=== PATIENT | female | born 1935 | race Caucasian/White ===

== ENCOUNTER 2018-12-15 11:13 | Day surgery (SDC) | payer MEDICARE, SELFPAY ==
--- NOTE | 2018-12-11 10:25 | PM.PREOP ---
Pre-operative Note Interval Note History & Physical reviewed/Exam performed by Physician: Yes Changes to H&P: No
--- NOTE | 2018-12-11 11:26 | P.OP_ITS ---
Operative Date/Time/Diagnoses Date of procedure: 12/15/18 Time of procedure: 12:45 Procedure & Clinicians Procedure: Preoperative diagnoses: 1. Left nuclear sclerotic and cortical cataract. Postoperative diagnoses: 1. Cataract removed by phacoemulsification with placement of posterior chamber intraocular lens. Procedure: Phacoemulsification with posterior chamber intraocular lens implant Surgeon: Shruthi Shields MD Complications: None Specimen: None Implant: ZCBOO+20.0 Blood loss: None Anesthesia: Retrobulbar with monitored standby Description of procedure: Patient presents with a complaint of decreased vision due to cataract which is affecting activities of daily living. The patient wants surgery to improve vision. The patient was taken to the operating room and given IV sedation. A retrobulbar block consisting of 6 cc of 2% xylocaine without epinephrine mixed half and half with 0.5% Marcaine with 1 cc of hyaluronidase added is placed between the medial and lateral 1/3 of the inferior orbital rim. Lid akinesia is obtain with 1% xylocaine with epinephrine infiltrated along the lid margin. The eye is manually massaged for 30 sec, prepped using Betadine solution, and draped in the usual sterile fashion. Temporal approach was made, a 1 mm side-port incision was made 90? from the proposed clear corneal incision position. Phenylephrine 1.5% mixed with 1% xylocaine 0.2 cc was placed into the anterior chamber. Viscoat followed by Vivienne was then placed. A 2.6 mm clear incision with a 2.6 mm blade was placed. A 360 degree capsulorrhexis style capsulotomy was then performed with a cystitome needle on a Healon. Hydrodelineation and hydrodissection were performed. The phacoemulsification unit is introduced, and sculpting notice used to groove the central lens. It is then removed in chopping mode. Epi nucleus is removed with epinuclear mode and irrigation aspiration was used to remove the peripheral cortex. The posterior capsule is polished. The intraocular lens is selected, inspected, power confirmed, and placed in the posterior chamber. The pupil was constricted with Miostat.. The wound was stromally hydrated and tested for leaks, there was none and it was left sutureless. Vigamox 0.1 cc was placed into the anterior chamber. Kenalog 0.2 cc was placed in the superior subconjunctival space. A drop of antibiotic and was placed and the eye was patched and shielded. The patient was stable and returned to the recovery room in excellent condition. Dictated by: Shruthi Shields MD Copy to: [facility]
[2018-12-15 12:00] VITALS: BP 149/80; PULSE 63; RESP 15; TEMP 36.3; O2SAT 100; BMI 19.4
[2018-12-15] MEDS: PROPARACAINE 0.5% OPHTH SOL 2 DROPS EYE-OP (12:08)
[2018-12-15] MEDS: CATARACT EYE COMPOUND (10 DROPS/SYRINGE) 3 DROPS EYE-OP (12:10)
--- NOTE | 2018-12-15 13:18 | SUR.OPER ---
Supine on eye stretcher, head on extension cradle secured with tape. Arms tucked at sides with blanket. Pillow under knees.
[2018-12-15] MEDS: MOXIFLOXACIN OPHTH DROPS 3 ML BOTTLE 2 DROPS INJ (13:45)
[2018-12-15] MEDS: PHENYLEPHRINE/LIDOCAINE VIAL (OR) 0.2 ML EYE-OP (13:45)
[2018-12-15] MEDS: TRIAMCINOLONE 50 MG/5 ML VIAL INJ (13:46)
[2018-12-15] MEDS: CHONDROIDTIN/SOD HYALURONATE 1.05 ML SYRINGE INTRAOCULA (13:46)
[2018-12-15] MEDS: CARBACHOL 1.5 ML VIAL INJ (13:47)
[2018-12-15] MEDS: BALANCED SALT IRRIG SOLN NO.2 15 ML IRR (13:47)
[2018-12-15] MEDS: OFLOXACIN 0.3% OPHTH 5 ML 2 DROPS EYE-LEFT (13:48)
[2018-12-15] MEDS: BALANCED SALT IRRIG SOLN NO.2 500 ML, EPINEPHrine 1 MG IRR (13:49)
[2018-12-15] MEDS: ERYTHROMYCIN OPHTH 1 GM OINT 1 APPLIC EYE-LEFT (13:50)
[2018-12-15] MEDS: LIDOCAINE 1% W/EPI INJ 20 ML INJ (13:51)
[2018-12-15] MEDS: LIDOCAINE 2% 4 ML, BUPIVACAINE 0.5% (PF) 4 ML, HYALURONIDASE 150 UNIT INJ (13:52)
[2018-12-15 14:15] VITALS: BP 150/69; PULSE 63; RESP 16; TEMP 36.4; O2SAT 100
== END 2018-12-15 14:31 | disposition home or self-care (01) ==
LOC: OR 11:14
PROVIDERS: Family Provider Family Medicine; PCP Family Medicine; Visit Provider Ophthalmology
DX: H25.812 Combined forms of age-related cataract, left eye (principal)
CPT/HCPCS: J0171; J2704; J3301; J3470

== ENCOUNTER → 2018-12-17 13:59 | Outpatient (CLI) | payer MEDICARE, SELFPAY | PROVIDERS: PCP Family Medicine; Visit Provider Family Medicine | DX: Z13.820 Encounter for screening for osteoporosis (principal); M85.851 Other specified disorders of bone density and structure, right thigh; Z78.0 Asymptomatic menopausal state; Z87.891 Personal history of nicotine dependence | CPT/HCPCS: 77080 ==

== ENCOUNTER 2018-12-29 08:13 | Day surgery (SDC) | payer MEDICARE, SELFPAY ==
--- NOTE | 2018-12-28 18:13 | PM.PREOP ---
Pre-operative Note Interval Note History & Physical reviewed/Exam performed by Physician: Yes Changes to H&P: No
--- NOTE | 2018-12-28 18:16 | P.OP_ITS ---
Operative Date/Time/Diagnoses Date of procedure: 12/29/18 Time of procedure: 09:45 Procedure & Clinicians Procedure: Preoperative diagnoses: 1. Right nuclear sclerotic and cortical cataract. Postoperative diagnoses: 1. Cataract removed by phacoemulsification with placement of posterior chamber intraocular lens. Procedure: Phacoemulsification with posterior chamber intraocular lens implant Surgeon: Shruthi Shields MD Complications: None Specimen: None Implant: ZCBOO+20.5 Blood loss: None Anesthesia: Retrobulbar with monitored standby Description of procedure: Patient presents with a complaint of decreased vision due to cataract which is affecting activities of daily living. The patient wants surgery to improve vision. The patient was taken to the operating room and given IV sedation. A retrobulbar block consisting of 6 cc of 2% xylocaine without epinephrine mixed half and half with 0.5% Marcaine with 1 cc of hyaluronidase added is placed between the medial and lateral 1/3 of the inferior orbital rim. Lid akinesia is obtain with 1% xylocaine with epinephrine infiltrated along the lid margin. The eye is manually massaged for 30 sec, prepped using Betadine solution, and draped in the usual sterile fashion. Temporal approach was made, a 1 mm side-port incision was made 90? from the proposed clear corneal incision position. Phenylephrine 1.5% mixed with 1% xylocaine 0.2 cc was placed into the anterior chamber. Viscoat followed by Vivienne was then placed. A 2.6 mm clear incision with a 2.6 mm blade was placed. A 360 degree capsulorrhexis style capsulotomy was then performed with a cystitome needle on a Healon. Hydrodelineation and hydrodissection were performed. The phacoemulsification unit is introduced, and sculpting notice used to groove the central lens. It is then removed in chopping mode. Epi nucleus is removed with epinuclear mode and irrigation aspiration was used to remove the peripheral cortex. The posterior capsule is polished. The intraocular lens is selected, inspected, power confirmed, and placed in the posterior chamber. The pupil was constricted with Miostat.. The wound was stromally hydrated and tested for leaks, there was none and it was left sutureless. Vigamox 0.1 cc was placed into the anterior chamber. Kenalog 0.2 cc was placed in the superior subconjunctival space. A drop of antibiotic and was placed and the eye was patched and shielded. The patient was stable and returned to the recovery room in excellent condition. Dictated by: Shruthi Shields MD Copy to: [facility]
[2018-12-29] MEDS: PROPARACAINE 0.5% OPHTH SOL 2 DROPS EYE-OP (08:55)
[2018-12-29] MEDS: CATARACT EYE COMPOUND (10 DROPS/SYRINGE) 3 DROPS EYE-OP (09:00)
[2018-12-29 09:07] VITALS: BP 143/77; PULSE 69; RESP 16; TEMP 36.1; O2SAT 100
[2018-12-29 09:08] VITALS: BMI 19.5
--- NOTE | 2018-12-29 10:06 | PM.PREOP ---
Pre-operative Note Interval Note History & Physical reviewed/Exam performed by Physician: Yes Changes to H&P: No
--- NOTE | 2018-12-29 10:14 | SUR.OPER ---
Supine on eye stretcher, head on extension cradle secured with tape. Arms tucked at sides with blanket. Pillow under knees.
[2018-12-29] MEDS: MOXIFLOXACIN OPHTH DROPS 3 ML BOTTLE 2 DROPS INJ ×2 (10:25→10:26)
[2018-12-29] MEDS: TRIAMCINOLONE 50 MG/5 ML VIAL INJ (10:26)
[2018-12-29] MEDS: BALANCED SALT IRRIG SOLN NO.2 15 ML IRR (10:27)
[2018-12-29] MEDS: CHONDROIDTIN/SOD HYALURONATE 1.05 ML SYRINGE INTRAOCULA (10:27)
[2018-12-29] MEDS: HYALURONATE SODIUM 10 MG/ML SYRINGE INJ (10:27)
[2018-12-29] MEDS: CARBACHOL 1.5 ML VIAL INJ (10:28)
[2018-12-29] MEDS: OFLOXACIN 0.3% OPHTH 5 ML 2 DROPS EYE-RIGHT (10:28)
[2018-12-29] MEDS: BALANCED SALT IRRIG SOLN NO.2 500 ML, EPINEPHrine 1 MG IRR (10:29)
[2018-12-29] MEDS: ERYTHROMYCIN OPHTH 1 GM OINT 1 APPLIC EYE-RIGHT (10:31)
[2018-12-29] MEDS: LIDOCAINE 1% W/EPI INJ 20 ML INJ (11:00)
[2018-12-29] MEDS: LIDOCAINE 2% 4 ML, BUPIVACAINE 0.5% (PF) 4 ML, HYALURONIDASE 150 UNIT INJ (11:00)
[2018-12-29 11:01] VITALS: BP 152/79; PULSE 69; RESP 15; TEMP 36.4; O2SAT 98
[2018-12-29 11:18] VITALS: BP 133/68; PULSE 65; RESP 15; TEMP 36.6; O2SAT 100
== END 2018-12-29 11:21 | disposition home or self-care (01) ==
LOC: OR 08:14
PROVIDERS: PCP Family Medicine; Visit Provider Ophthalmology
DX: H25.811 Combined forms of age-related cataract, right eye (principal)
CPT/HCPCS: J0171; J2704; J3301; J3470

== ENCOUNTER → 2019-01-07 14:49 | Outpatient (CLI) | payer MEDICARE, SELFPAY ==
--- NOTE | 2019-01-07 | DI.MG.S_ITS ---
BILATERAL DIGITAL SCREENING MAMMOGRAM 3D/2D WITH CAD: 01/07/2019 CLINICAL: Routine screening. Family history of breast cancer. Comparison is made to exams dated: 01/08/2018 mammogram, 12/22/2016 mammogram, and 08/06/2015 mammogram - [facility]. The tissue of both breasts is extremely dense, which lowers the sensitivity of mammography. Current study was also evaluated with a Computer Aided Detection (CAD) system. There are benign post operative findings in the left breast. There also are benign calcifications in both breasts. No significant masses, calcifications, or other findings are seen in either breast. There has been no significant interval change. IMPRESSION: There is no mammographic evidence of malignancy. A 1 year screening mammogram is recommended. This exam was interpreted at Station ID: [id number]. NOTE: For mammograms, a report in lay terms will be sent to the patient. Approximately 15% of breast malignancies will not be visualized mammographically. In the management of a palpable breast mass, a negative mammogram must not discourage biopsy of a clinically suspicious lesion. Electronically Signed By: Harrison mcduffie/danielle:01/07/2019 17:12:21 letter sent: Normal Exam ACR BI-RADS Category 2: Benign Finding(s) 3342F
== END ==
PROVIDERS: PCP Family Medicine; Visit Provider Family Medicine
DX: Z12.31 Encounter for screening mammogram for malignant neoplasm of breast (principal); Z80.3 Family history of malignant neoplasm of breast
CPT/HCPCS: 77063; 77067

== ENCOUNTER → 2019-02-04 15:55 | Outpatient (CLI) | payer MEDICARE, SELFPAY ==
--- NOTE | 2019-02-04 | DI.ECHO.S_ITS ---
[facility]---------+ [facility] +---------+ : : [address] : : : : [id number] : : : : Phone: [phone]+ Echocardiogram Report + + :Name: DAMIEN FARMRE Study Date: 02/04/2019 Height: 68 in : :[facility] Weight: 131 lb : : Gender: Female BSA: 1.7 m2 : :: 1935 Age: 83 yrs BP: 100/58 mmHg: :Reason For Study: HYPOTENSION : : Performed By: Deann Chavez : :Referring: JANEL MCINTOSH : + + Interpretation Summary The left ventricle is normal in size, wall thickness, and systolic function without any focal wall motion abnormalities. The right ventricle is normal in size and function. Both atria are normal in size. Pulmonary artery pressures cannot be estimated because of the lack of a measurable TR jet velocity but the IVC suggests a CVP of around 3 mmHg. There is no prior echocardiogram noted for this patient. Procedure: A two-dimensional transthoracic echocardiogram with color flow and Doppler was performed. The study quality was technically good. There is no prior echocardiogram noted for this patient. The patient was in normal sinus rhythm during the exam. Left Ventricle: The left ventricle is normal in size, wall thickness, and systolic function without any focal wall motion abnormalities. The ejection fraction is estimated to be 60-65%. Diastolic parameters suggest a relaxation abnormality of the left ventricle, consistent with probable normal filling pressures. Right Ventricle: The right ventricle is normal in size and function. Atria: Both atria are normal in size. There is no Doppler evidence for an interatrial shunt. Mitral Valve: The mitral valve is normal in structure and function. There is trace mitral regurgitation. Aortic Valve: The aortic valve is normal in structure and function. There is no aortic valve stenosis. There is trace aortic regurgitation. Tricuspid Valve: The tricuspid valve is normal in structure and function. There is a trace or physiologic amount of tricuspid regurgitation. Pulmonary artery pressures cannot be estimated because of the lack of a measurable TR jet velocity but the IVC suggests a CVP of around 3 mmHg. Pulmonic Valve: The pulmonic valve is normal in structure and function. There is a trace or physiologic amount of pulmonic regurgitation. Great Vessels: The aortic root is normal size. The ascending aorta is normal in size. The aortic arch is normal in size. The pulmonary artery is normal size. The IVC is of normal diameter and collapses greater than 50% with a sniff. This suggests a low right atrial pressure of 3 mm Hg. Pericardium/ Pleura There is no pericardial effusion. There is no pleural effusion. MMode/2D Measurements & Calculations LVIDd: 4.3 cm LVOT diam: 2.1 cm LVIDs: 2.9 cm Ao root diam: 2.7 cm FS: 31.6 % asc Aorta Diam: 2.9 cm EPSS: 0.30 cm IVSd: 0.80 cm LVPWd: 0.70 cm LV garcia. diameter/BSA (cm/m^2): 2.5 LV sys. diameter/BSA (cm/m^2): 1.7 LA A2 area: 11.9 cm2 RA long axis: 4.6 cm LA A4 area: 14.5 cm2 RA area: 13.0 cm2 LA length (vol): 4.9 cm RA vol: 31.2 ml LA vol: 29.8 ml RA : 18.3 ml/m2 LA vol index: 17.5 ml/m2 IVC diam: 2.1 cm RVD1 (basal): 3.1 cm TAPSE: 1.8 cm Doppler Measurements & Calculations Ao V2 max: 105.6 cm/sec LVOT Max Micheal: 84.2 cm/sec Ao V2 mean: 80.5 cm/sec LV V1 max P.8 mmHg Ao max P.5 mmHg LV V1 VTI: 18.3 cm Ao mean P.8 mmHg DENISE(I,D): 2.9 cm2 Ao V2 VTI: 22.9 cm DENISE(V,D): 2.9 cm2 sev ratio: 0.80 DENISE indexed to BSA (cm^2/m^2): 1.7 MV E max micheal: 55.7 cm/sec SV(LVOT): 65.4 ml MV A max micheal: 70.5 cm/sec MV E/A: 0.79 Med Peak E' Micheal: 3.9 cm/sec E/E' med: 14.3 Lat Peak E' Micheal: 6.2 cm/sec E/E' lat: 9.0 E/e' average: 11.6 MV dec time: 0.30 sec Electronically signed by: Jacob Mendoza M.D. on Reading Physician:02/04/2019 11:03 PM
== END ==
PROVIDERS: PCP Family Medicine; Visit Provider Family Medicine
DX: I95.9 Hypotension, unspecified (principal)
CPT/HCPCS: 93306

== ENCOUNTER → 2020-03-28 15:58 | Outpatient (CLI) | payer MEDICARE, SELFPAY ==
--- NOTE | 2020-03-28 16:42 | DI.RAD.S_ITS ---
PROCEDURE: XR KNEE LT 3V INDICATIONS: LEFT KNEE PAIN S/P FALL TECHNIQUE: 3 views of the knee were acquired. COMPARISON: None. FINDINGS: Bones: No fractures or dislocations. No suspicious bony lesions. Mild tricompartmental articular osteophyte formation. Soft tissues: Moderate knee joint effusion. No suspicious soft tissue calcifications. IMPRESSION: 1. Knee joint effusion. 2. No acute fracture. No osseous lesion. If symptoms and/or clinical suspicion for pathology persist, further assessment with repeat, or advanced imaging (e.g., CT, MRI, or bone scan) may be helpful for further assessment. Dictated by: Silviano Castro M.D. on 03/28/2020 at 17:07 Approved by: Silviano Castro M.D. on 03/28/2020 at 17:08
== END ==
PROVIDERS: PCP Family Medicine; Referring Provider Family Medicine; Visit Provider Family Medicine
DX: M25.562 Pain in left knee (principal); M25.462 Effusion, left knee
CPT/HCPCS: 73562

== ENCOUNTER → 2020-04-13 13:08 | Outpatient (CLI) | payer MEDICARE, SELFPAY ==
--- NOTE | 2020-04-13 | DI.MRI.S_ITS ---
PROCEDURE: MR KNEE LT WO CON INDICATIONS: Unspecified internal derangement of left knee TECHNIQUE: Noncontrast sagittal PD fast spin echo and T2 fast spin echo with fat saturation, sagittal 3-D FLASH with fat saturation; coronal T1 spin echo and PD fast spin echo with fat saturation, and axial PD fast spin echo with fat saturation through the knee. COMPARISON: None. FINDINGS: Image quality: Excellent. Menisci: Complex tear involving posterior horn of medial meniscus is seen extending to both superior and inferior articulating surfaces. There is no evidence of focal lateral meniscal tear. The meniscal root ligaments appear intact. Cruciate ligaments: Degenerative changes and suggestion of low-grade intrasubstance partial-thickness tear involving anterior cruciate ligament is seen. No full thickness ACL rupture. PCL is intact.. Medial structures: The medial collateral ligament appears intact. The posterior oblique ligament, semimembranosus tendon insertions, oblique popliteal ligament, and meniscocapsular junction appear intact. Visualized portions of the pes anserinus tendons appear normal. No abnormal bursal fluid. Lateral structures: The lateral collateral ligament, long and short heads of the biceps femoris tendon appear intact. The popliteus tendon appears normal; the popliteofibular ligament appears intact. The posterosuperior and anteroinferior popliteomeniscal fascicles appear intact. The arcuate and fabellofibular ligaments appear intact, on either side of the lateral inferior geniculate artery. Iliotibial band appears normal. Anterior structures: The quadriceps and patellar tendons appear intact. Patellar alignment is normal. No femoral trochlear dysplasia or ventral trochlear prominence. No edema in the infrapatellar fat pad. Bones and cartilage: Extensive edema involving mid to inferior portion of patella is seen. Subtle linear hypointense signal within the inferior portion of patella is noted concerning for subtle nondisplaced patella fracture. Mild tricompartmental osteoarthritis is seen more prominent in the medial femoral tibial compartment. Low-grade medial and lateral femoral tibial compartment chondromalacia is also seen. Joint space: There is small amount of joint fluid. Small popliteal cyst is seen. Normal appearing synovial plicae are incidentally noted. IMPRESSION: 1. Finding is concerning for contusion versus subtle incomplete fracture of inferior portion of patella with extensive marrow edema. No other area of abnormal marrow signal. 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 Small amount of joint fluid and small popliteal cyst. 2. Complex tear involving posterior horn of medial meniscus extending to both superior and inferior articulating surfaces. No focal lateral meniscal tear. 3. Myxoid degenerative changes and low-grade intrasubstance partial-thickness tear involving anterior cruciate ligament. No full-thickness ACL rupture. PCL is intact. Dictated by: Mika Lazaro M.D. on 04/13/2020 at 14:10 Approved by: Mika Lazaro M.D. on 04/13/2020 at 14:27
== END ==
PROVIDERS: PCP Family Medicine; Referring Provider Orthopaedic Surgery; Visit Provider Orthopaedic Surgery
DX: S83.232A Complex tear of medial meniscus, current injury, left knee, initial encounter (principal); S83.512A Sprain of anterior cruciate ligament of left knee, initial encounter; M17.12 Unilateral primary osteoarthritis, left knee; M94.262 Chondromalacia, left knee; R60.0 Localized edema
CPT/HCPCS: 73721

== ENCOUNTER → 2021-01-11 15:41 | Outpatient (CLI) | payer MEDICARE, SELFPAY ==
--- NOTE | 2021-01-11 15:42 | DI.MG.S_ITS ---
BILATERAL DIGITAL SCREENING MAMMOGRAM 3D/2D WITH CAD: 01/11/2021 CLINICAL: Routine screening. Family history of breast cancer. Comparison is made to exams dated: 01/07/2019 mammogram, 01/08/2018 mammogram, and 12/22/2016 mammogram - [facility]. The tissue of both breasts is extremely dense, which lowers the sensitivity of mammography. Current study was also evaluated with a Computer Aided Detection (CAD) system. There are benign calcifications in both breasts. There also are benign post operative findings in the left breast. No significant masses, calcifications, or other findings are seen in either breast. There has been no significant interval change. IMPRESSION: BENIGN There is no mammographic evidence of malignancy. A 1 year screening mammogram is recommended. This exam was interpreted at Station ID: [id number]. NOTE: For mammograms, a report in lay terms will be sent to the patient. Approximately 15% of breast malignancies will not be visualized mammographically. In the management of a palpable breast mass, a negative mammogram must not discourage biopsy of a clinically suspicious lesion. Electronically Signed By: Antelmo arias/danielle:01/11/2021 16:30:06 letter sent: Normal Exam ACR BI-RADS Category 2: Benign Finding(s) 3342F
== END ==
PROVIDERS: PCP Family Medicine; Referring Provider Family Medicine; Visit Provider Family Medicine
DX: Z12.31 Encounter for screening mammogram for malignant neoplasm of breast (principal)
CPT/HCPCS: 77063; 77067

== ENCOUNTER → 2022-03-25 10:49 | Outpatient (CLI) | payer MEDICARE, SELFPAY ==
--- NOTE | 2022-03-25 | DI.MG.S_ITS ---
BILATERAL DIGITAL SCREENING MAMMOGRAM 3D/2D WITH CAD: 03/25/2022 CLINICAL: Routine screening. Family history of breast cancer. Comparison is made to exams dated: 01/11/2021 mammogram, 01/07/2019 mammogram, 01/08/2018 mammogram, and 12/22/2016 mammogram - [facility]. The tissue of both breasts is extremely dense, which lowers the sensitivity of mammography. Current study was also evaluated with a Computer Aided Detection (CAD) system. There are benign calcifications in both breasts. There also are benign vascular calcifications in both breasts. Additionally, there are benign post operative findings in the left breast. No significant masses, calcifications, or other findings are seen in either breast. There has been no significant interval change. IMPRESSION: BENIGN There is no mammographic evidence of malignancy. A 1 year screening mammogram is recommended. This exam was interpreted at Station ID: [id number]. NOTE: For mammograms, a report in lay terms will be sent to the patient. Approximately 15% of breast malignancies will not be visualized mammographically. In the management of a palpable breast mass, a negative mammogram must not discourage biopsy of a clinically suspicious lesion. Electronically Signed By: Keron springer/danielle:03/25/2022 12:29:20 letter sent: Normal Exam ACR BI-RADS Category 2: Benign Finding(s) 3342F
== END ==
PROVIDERS: PCP Family Medicine; Referring Provider Family Medicine; Visit Provider Family Medicine
DX: Z12.31 Encounter for screening mammogram for malignant neoplasm of breast (principal); Z80.3 Family history of malignant neoplasm of breast
CPT/HCPCS: 77063; 77067

== ENCOUNTER → 2022-06-05 14:09 | Outpatient (CLI) | payer MEDICARE, SELFPAY | PROVIDERS: PCP Family Medicine; Referring Provider Family Medicine; Visit Provider Family Medicine | DX: M85.89 Other specified disorders of bone density and structure, multiple sites (principal) | CPT/HCPCS: 77080 ==

== ENCOUNTER → 2023-08-03 15:53 | Outpatient (CLI) | payer MEDICARE, SELFPAY ==
--- NOTE | 2023-08-03 | DI.ECHO.S_ITS ---
[place] [facility]---------+ [facility] +---------+ : : [address] : : : : [id number] : : : : Phone: [phone]---------+ Echocardiogram Report + + :Name: DAMIEN FARMER Study Date: 08/03/2023 Height: 68 in : :[facility]: Weight: 130 lb : : Gender: Female BSA: 1.7 m2 : :: 1935 Age: 88 yrs BP: 159/84 mmHg: :Reason For Study: Palpitations : :Ordering Physician: ARNALDO, : :JANEL Performed By: Jasmine Chase : :Referring: JANEL MCINTOSH : + + Interpretation Summary Normal left ventricle size with ejection fraction 55-60%. Mild mitral regurgitation. Comparison is made with the echocardiogram of 02/04/2019, no significant change. Procedure: A two-dimensional transthoracic echocardiogram with color flow and Doppler was performed. The study quality was technically adequate. Comparison is made with the echocardiogram of 02/04/2019. The patient was in normal sinus rhythm during the exam. Left Ventricle: The left ventricle is normal in size. There is normal left ventricular wall thickness. The ejection fraction is estimated to be 55-60%. There are no focal wall motion abnormalities. Right Ventricle: The right ventricle is normal in size and function. Atria: The left atrial size is normal. Right atrial size is normal. There is no Doppler evidence for an interatrial shunt. Mitral Valve: The mitral valve leaflets appear borderline thickened, but open well. There is no mitral valve stenosis. There is mild mitral regurgitation. Aortic Valve: The aortic valve is trileaflet. The aortic valve opens well. There is no aortic valve stenosis. There is trace aortic regurgitation. Tricuspid Valve: The tricuspid valve is normal. There is no tricuspid stenosis. There is trace tricuspid regurgitation. The right ventricular systolic pressure is estimated to be at least 26 mmHg based on an estimated right atrial pressure of 8 mm Hg. Pulmonic Valve: The pulmonic valve leaflets are thin and pliable; valve motion is normal. There is no pulmonic valvular stenosis. There is trace pulmonic regurgitation. Great Vessels: The aortic root is normal size. The ascending aorta is normal in size. The pulmonary artery is normal size. The IVC is dilated (diameter is greater than 2.1 cm) yet it collapses greater than 50% with a sniff. This suggests a right atrial pressure of 8 mm Hg. Pericardium/ Pleura There is no pericardial effusion. There is no pleural effusion. MMode/2D Measurements & Calculations LVIDd: 4.2 cm LVOT diam: 1.9 cm LVIDs: 2.9 cm Ao root diam: 2.9 cm FS: 31.0 % asc Aorta Diam: 3.2 cm EPSS: 0.50 cm IVSd: 1.0 cm LVPWd: 1.0 cm LV garcia. diameter/BSA (cm/m^2): 2.5 LV sys. diameter/BSA (cm/m^2): 1.7 LA A2 area: 16.5 cm2 RA long axis: 3.9 cm LA A4 area: 11.9 cm2 RA area: 8.0 cm2 LA length (vol): 5.5 cm RA vol: 13.9 ml LA vol: 30.5 ml RA : 8.2 ml/m2 LA vol index: 17.9 ml/m2 IVC diam: 2.6 cm RVD1 (basal): 3.2 cm LVLs ap4: 5.2 cm LVLd ap2: 6.2 cm TAPSE_phl: 2.2 cm LVLs ap2: 5.5 cm Doppler Measurements & Calculations Ao V2 max: 116.0 cm/sec LVOT Max Micheal: 100.5 cm/sec Ao V2 mean: 81.6 cm/sec LV V1 max P.0 mmHg Ao max P.0 mmHg LV V1 VTI: 20.5 cm Ao mean P.0 mmHg DENISE(I,D): 2.1 cm2 Ao V2 VTI: 28.1 cm DENISE(V,D): 2.5 cm2 sev ratio: 0.73 DENISE indexed to BSA (cm^2/m^2): 1.2 MV E max mihceal: 73.0 cm/sec TR max micheal: 214.0 cm/sec MV A max micheal: 80.2 cm/sec TR max P.3 mmHg MV E/A: 0.91 PA V2 max: 77.1 cm/sec Med Peak E' Micheal: 6.2 cm/sec PA V2 mean: 54.8 cm/sec E/E' med: 11.8 PA mean P.5 mmHg Lat Peak E' Micheal: 7.8 cm/sec PA pr(Accel): 39.8 mmHg E/E' lat: 9.4 E/e' average: 10.6 MV dec time: 0.21 sec SV(LVOT): 58.1 ml AV VR_phl: 0.87 DENISE(VTI)/BSA_phl: 1.2 Electronically signed by: Martínez Crain on Reading Physician:08/03/2023 09:17 PM
== END ==
PROVIDERS: Family Provider Family Medicine; PCP Family Medicine; Referring Provider Family Medicine; Visit Provider Family Medicine
DX: I34.0 Nonrheumatic mitral (valve) insufficiency (principal); I49.9 Cardiac arrhythmia, unspecified; R00.2 Palpitations
CPT/HCPCS: 93306

== ENCOUNTER → 2023-09-23 13:21 | Outpatient (CLI) | payer MEDICARE, SELFPAY | PROVIDERS: Family Provider Family Medicine; PCP Family Medicine; Referring Provider Family Medicine; Visit Provider Family Medicine | DX: G62.89 Other specified polyneuropathies (principal); M48.062 Spinal stenosis, lumbar region with neurogenic claudication | CPT/HCPCS: 95886; 95910 ==

== ENCOUNTER 2023-10-28 09:07 | Emergency (ER) | payer MEDICARE, SELFPAY ==
[2023-10-28 09:14] VITALS: BP 190/86; PULSE 75; RESP 14; TEMP 36.2; O2SAT 97; BMI 21.2
--- NOTE | 2023-10-28 09:28 | DI.CT.S_ITS ---
PROCEDURE: CT HEAD/BRAIN WO CON INDICATIONS: GLF/INJURY/PAIN TECHNIQUE: Noncontrast 4.5 mm thick angled axial sections acquired from the foramen magnum to the vertex, with coronal and sagittal reformats. For radiation dose reduction, the following was used: automated exposure control, adjustment of mA and/or kV according to patient size. COMPARISON: None. FINDINGS: Image quality: Diagnostic. CSF spaces: Basal cisterns are patent. No extra-axial fluid collections. The ventricles are symmetric in size and shape. Brain: No intracranial bleeds or masses. There is cerebral volume loss for age, with resultant ventricular and sulcal prominence. There are periventricular and deep white matter chronic small vessel ischemic changes. There is intracranial internal carotid artery atherosclerosis. Skull and face: Calvarium and visualized facial bones appear intact, without suspicious lesions. Large subgaleal hematoma, right anterolateral supraorbital region. Sinuses: Visualized sinuses and mastoids are clear. IMPRESSION: Subgaleal hematoma. No acute intracranial pathology. Dictated by: Marbin Burk M.D. on 10/28/2023 at 9:59 Approved by: Marbni Burk M.D. on 10/28/2023 at 10:00
--- NOTE | 2023-10-28 09:28 | DI.RAD.S_ITS ---
PROCEDURE: XR SHOULDER RT MIN 2V INDICATIONS: GLF/INJURY/PAIN TECHNIQUE: 3 views of the shoulder were acquired. COMPARISON: [facility], , SHOULDER MINIMUM 2 VIEW LEFT, 04/20/2007, 10:09. FINDINGS: Bones: No fractures or dislocations. No suspicious bony lesions. Visualized ribs appear intact. Moderate to severe acromioclavicular moderate glenohumeral degenerative narrowing. Soft tissues: No suspicious soft tissue calcifications. IMPRESSION: Arthritic changes at the shoulder. No visualized acute fracture or dislocation. However, if clinical concern and/or pain persist, short interval imaging followup in 7-10 days is recommended, as occult injury cannot be definitively excluded. Dictated by: Irene Wu M.D. on 10/28/2023 at 10:01 Approved by: Irene Wu M.D. on 10/28/2023 at 10:02
--- NOTE | 2023-10-28 09:38 | DI.CT.S_ITS ---
PROCEDURE: CT CERVICAL SPINE WO CON INDICATIONS: GLF/INJURY/PAIN TECHNIQUE: Noncontrast 3 mm thick sections acquired from the skull base to the T4 level. Sagittal and coronal reformats were then constructed. For radiation dose reduction, the following was used: automated exposure control, adjustment of mA and/or kV according to patient size. COMPARISON: None. FINDINGS: Image quality: Excellent. Bones: No fractures or dislocations. Visualized superior ribs are intact. Cervical spondylosis with disc height loss and uncovertebral joint osteophytosis at C3-C4 through C5-C6 with bilateral foraminal narrowing at these levels. There is a degree of canal stenosis at C5-C6. Soft tissues: Prevertebral soft tissues are normal in thickness. No paravertebral hematomas. No apical pneumothoraces. Mild apical emphysematous change. 7 mm apical pulmonary nodule on the left, image 65/2. IMPRESSION: 1. No acute cervical fracture or dislocation. 2. Cervical spondylosis. 3. Mild biapical emphysematous change. 4. 7 mm left apical pulmonary nodule. Comment: Consider nonemergent lung screen CT. Dictated by: Marbin Burk M.D. on 10/28/2023 at 10:00 Approved by: Marbin Burk M.D. on 10/28/2023 at 10:03
--- NOTE | 2023-10-28 10:46 | ED.HEATRA ---
HPI - Head Injury General Chief complaint: Head Injury Stated complaint: hit in head and right shoulder from dog feels sick Time Seen by Provider: 10/28/23 09:12 Source: patient Mode of arrival: Ambulatory History of Present Illness HPI Narrative: 88-year-old female presents for evaluation of head injury that occurred just prior to arrival. Patient was walking her dog when another large dog ran up and began to wrestling with her dog. While trying to separate the 2 animals the other dog jumped and head-butted her in the right face. Denies loss of consciousness, denies use of blood thinners. Also having R shoulder pain. Large hematoma on R forehead near eyebrow Related Data Home Medications Medication Instructions Recorded Confirmed CYANOCOBALAMIN (VITAMIN B-12) 1,000 mcg PO Q DAY ##0 10/23/11 12/29/18 (Vitamin B-12) FLAXSEED (FLAXSEED OIL) 1 cap PO Q DAY ##0 10/23/11 12/29/18 Fish Oil (Fish Oil 500 MG Softgel) 500 mg PO Q DAY ##0 10/23/11 12/29/18 Previous Rx's Medication Instructions Recorded ondansetron 4 mg disintegrating 4 mg PO Q8H PRN nausea and 10/28/23 tablet vomiting #30 tabs Allergies Allergy/AdvReac Type Severity Reaction Status Date / Time Sulfa (Sulfonamide Allergy Severe severe flu Verified 10/28/23 09:14 Antibiotics) symptoms, [SULFA (SULFONAMIDE orbital ANTIBIOTICS)] jaundice Review of Systems Review of Systems Narrative: Negative except as noted above Patient History Social History household members: none Smoking Status: Unknown if ever smoked Smoking Status: Unknown if ever smoked alcohol intake frequency: 0-2 drinks per day Substance Use Type: does not use Exam Initial Vital Signs Initial Vital Signs: Vital Signs Temperature 97.1 F L 10/28/23 09:14 Pulse Rate 75 10/28/23 09:14 Respiratory Rate 14 10/28/23 09:14 Blood Pressure 190/86 H 10/28/23 09:14 Pulse Oximetry 97 10/28/23 09:14 Oxygen Delivery Method Room Air 10/28/23 09:14 Const: Awake, alert, no acute distress, nontoxic appearing Eyes: PERRL, EOMI, conjunctiva normal Cardiac: regular rate, regular rhythm RESP: unlabored, clear bilaterally, no wheezing GI: Atraumatic, soft, nontender, nondistended, no rebound, no guarding MSK: Atraumatic, full range of motion, pulses equal Skin: Warm, Dry, hematoma R forehead Neuro: AO x3, CN II-XII grossly intact, moves all extremities Psych: affect normal, mood normal, not suicidal, not homicidal Course Orders Ordered: Discontinued Medications Acetaminophen (Acetaminophen 325 Mg Tablet) 975 mg PO NOW ONE Stop: 10/28/23 10:39 Last Admin: 10/28/23 10:51 Dose: 975 mg Documented By: CTS Diphtheria/Tetanus/Acell Pertussis (Tet,Diph,Pertuss(Acell),Vac/Pf 0.5 Ml Syringe) 0.5 ml IM .ONCE ONE Stop: 10/28/23 10:49 Last Admin: 10/28/23 10:53 Dose: 0.5 ml Documented By: CTS Vital Signs Vital signs: Vital Signs - 8 hr 10/28/23 09:14 Temperature 97.1 F L Pulse Rate 75 Respiratory Rate 14 Blood Pressure 190/86 H Pulse Oximetry 97 Oxygen Delivery Method Room Air MDM - Head Injury Differential Diagnosis Differential diagnosis: Likely concussion without loss of consciousness, closed head injury and postconcussion syndrome MDM Narrative Medical decision making narrative: Head injury, headbutted by dog. CT negative for intracranial findings. XR normal. patient advised of imaging results, supportive measures counseled for home. Zofran sent to pharmacy of choice Discharge Plan Departure Patient Disposition: Home Clinical Impression: Hematoma Closed head injury Qualifiers: Encounter type: initial encounter Qualified Code(s): S09.90XA - Unspecified injury of head, initial encounter Instructions: DI for Closed Head Injury Activity Restrictions/Additional Instructions: Your CT imaging showed that you have a large bruise, but nothing broken and no bleeding in the brain. Incidentally a pulmonary nodule was found, I recommend following up with your primary care physician to see if any additional testing is needed. Your shoulder x-ray today was normal. Take Tylenol for pain, ice will help with swelling. Prescriptions: New ondansetron 4 mg tablet,disintegrating 4 mg PO Q8H PRN (Reason: nausea and vomiting) Qty: 30 0RF No Action CYANOCOBALAMIN (VITAMIN B-12) (Vitamin B-12) 1,000 mcg PO Q DAY Qty: 0 FLAXSEED (FLAXSEED OIL) 1 cap PO Q DAY Qty: 0 Fish Oil (Fish Oil 500 MG Softgel) 500 mg PO Q DAY Qty: 0 Referrals: Sabine Alvarado MD [Primary Care Provider] - Stand Alone Forms: Patient Portal/API
[2023-10-28] MEDS: ACETAMINOPHEN 325 MG TABLET 975 MG PO (10:51)
[2023-10-28] MEDS: TET,DIPH,PERTUSS(ACELL),VAC/PF 0.5 ML SYRINGE IM (10:53)
[2023-10-28 10:57] VITALS: BP 184/78; PULSE 77; RESP 16; O2SAT 99
== END 2023-10-28 10:58 | disposition home or self-care (01) ==
PROVIDERS: Emergency Provider Emergency Medicine; Family Provider Family Medicine; PCP Family Medicine
DX: S09.90XA Unspecified injury of head, initial encounter (principal); S00.83XA Contusion of other part of head, initial encounter; X58.XXXA Exposure to other specified factors, initial encounter; Z23 Encounter for immunization
CPT/HCPCS: 70450; 72125; 73030; 90471; 99283; 99284; 90715

== ENCOUNTER 2023-11-01 11:40 | Emergency (ER) | payer MEDICARE, SELFPAY ==
[2023-11-01 12:11] VITALS: BP 179/80; PULSE 70; RESP 16; TEMP 36.6; O2SAT 97; BMI 20.5
[2023-11-01 13:23] VITALS: BP 194/87; PULSE 76; O2SAT 96
--- NOTE | 2023-11-01 13:47 | ED_ITS ---
HPI - Head Injury General Chief complaint: Head Injury Stated complaint: fall t-4, not feeling better Time Seen by Provider: 11/01/23 13:38 Source: patient and family Mode of arrival: Ambulatory Limitations: no limitations History of Present Illness HPI Narrative: Patient is an 88-year-old female. Not on anticoagulation. Four days ago fell and hit the right side of her head. Seen here in the emergency department. Had CT scans performed. No intracranial acute pathology. Has seen her primary doctor. Since falling she states that the bruise that she had on the side of her head has improved but she does have bruising around both of her eyes. She denies any vision changes. Has had episodes of ringing in her ears, lightheadedness, dizziness and facial pressure. No new extremity injuries. Related Data Home Medications Medication Instructions Recorded Confirmed CYANOCOBALAMIN (VITAMIN B-12) 1,000 mcg PO Q DAY ##0 10/23/11 12/29/18 (Vitamin B-12) FLAXSEED (FLAXSEED OIL) 1 cap PO Q DAY ##0 10/23/11 12/29/18 Fish Oil (Fish Oil 500 MG Softgel) 500 mg PO Q DAY ##0 10/23/11 12/29/18 Previous Rx's Medication Instructions Recorded ondansetron 4 mg disintegrating 4 mg PO Q8H PRN nausea and 10/28/23 tablet vomiting #30 tabs promethazine 25 mg tablet 25 mg PO Q6H PRN nausea and 11/01/23 vomiting #10 tabs Allergies Allergy/AdvReac Type Severity Reaction Status Date / Time Sulfa (Sulfonamide Allergy Severe severe flu Verified 11/01/23 12:16 Antibiotics) symptoms, [SULFA (SULFONAMIDE orbital ANTIBIOTICS)] jaundice Review of Systems Constitutional Constitutional: Reports system reviewed and no additional complaints, except as documented Eyes Eyes: Reports system reviewed and no additional complaints, except as documented ENT Ears, Nose, Mouth, and Throat: Reports system reviewed and no additional complaints, except as documented Musculoskeletal Musculoskeletal: Reports system reviewed and no additional complaints, except as documented Integumentary/Breasts Skin/Breast: Reports system reviewed and no additional complaints, except as documented Neurologic Neurologic: Reports system reviewed and no additional complaints, except as documented Hematologic/Lymphatic On Anticoagulants: No Patient History Social History household members: none Smoking Status: Never smoker Smoking Status: Never smoker alcohol intake frequency: 0-2 drinks per day Substance Use Type: does not use Exam Initial Vital Signs Initial Vital Signs: Vital Signs Temperature 97.9 F 11/01/23 12:11 Pulse Rate 70 11/01/23 12:11 Respiratory Rate 16 11/01/23 12:11 Blood Pressure 179/80 H 11/01/23 12:11 Pulse Oximetry 97 11/01/23 12:11 Oxygen Delivery Method Room Air 11/01/23 12:11 Const General: cooperative and comfortable HENMT Ears: TM's normal bilaterally HENMT Other: Ecchymosis right side of face and under both eyes Eyes Pupils: PERRL Other: Ecchymosis around eyes Resp Effort & Inspection: normal respiratory effort Cardio Rate: regular rate Skin Other: Ecchymosis around both eyes Neuro General: patient alert and moves all extremities Extrem General: capillary refill normal Scores GCS [place] coma scale eye opening: Spontaneous Janel coma scale verbal response: Orientated Janel coma scale motor response: Obey commands Janel coma scale total score: 15 Course Vital Signs Vital signs: Vital Signs - 8 hr 11/01/23 12:11 11/01/23 13:23 11/01/23 14:21 Temperature 97.9 F Pulse Rate 70 76 72 Respiratory Rate 16 16 Blood Pressure 179/80 H 194/87 H 175/80 H Pulse Oximetry 97 96 100 Oxygen Delivery Method Room Air Room Air MDM - Head Injury MDM Narrative Medical decision making narrative: Patient did have a head CT when she was seen here in the emergency department after the injury. This is unremarkable. Cervical spine is unremarkable. Presentation today is consistent with a concussion/postconcussive syndrome. No indication for repeat head CT today. We did discuss that the symptoms she presents with today are consistent with a concussion. Discussed use of Tylenol and ibuprofen. Zofran that she has at home is not necessarily working for her nausea so we will try Phenergan. Advised the patient contact her primary doctor for follow-up. She expressed understanding and agreement. Discharge Plan Departure Patient Disposition: Home Clinical Impression: Post-concussion syndrome Instructions: DI for Concussion Activity Restrictions/Additional Instructions: It is important that you continue all of your medications as directed. You can take the Tylenol like we discussed. Use the nausea medication as needed. Avoid activities that make his symptoms worse. Contact your primary doctor for follow-up. Return to the emergency department for new symptoms. Prescriptions: New promethazine 25 mg tablet 25 mg PO Q6H PRN (Reason: nausea and vomiting) Qty: 10 0RF No Action CYANOCOBALAMIN (VITAMIN B-12) (Vitamin B-12) 1,000 mcg PO Q DAY Qty: 0 FLAXSEED (FLAXSEED OIL) 1 cap PO Q DAY Qty: 0 Fish Oil (Fish Oil 500 MG Softgel) 500 mg PO Q DAY Qty: 0 ondansetron 4 mg tablet,disintegrating 4 mg PO Q8H PRN (Reason: nausea and vomiting) Qty: 30 0RF Referrals: Sabine Alvarado MD [Primary Care Provider] - Stand Alone Forms: Patient Portal/API
[2023-11-01 14:21] VITALS: BP 175/80; PULSE 72; RESP 16; O2SAT 100
== END 2023-11-01 14:22 | disposition home or self-care (01) ==
PROVIDERS: Emergency Provider Emergency Medicine; Family Provider Family Medicine; PCP Family Medicine
DX: F07.81 Postconcussional syndrome (principal)
CPT/HCPCS: 99281; 99283

== ENCOUNTER → 2023-11-03 15:40 | Outpatient (CLI) | payer MEDICARE, SELFPAY ==
--- NOTE | 2023-11-03 | DI.CT.S_ITS ---
PROCEDURE: CT CHEST WO CON INDICATIONS: PULMONARY NODULE TECHNIQUE: Noncontrast 5 mm thick sections acquired from the pulmonary apices to the posterior costophrenic angles. 1 mm lung window, 5 mm thick coronal and sagittal and 7 mm axial MIP reformats were then acquired. For radiation dose reduction, the following was used: automated exposure control, adjustment of mA and/or kV according to patient size. COMPARISON: [facility], CT, CT CERVICAL SPINE WO CON, 10/28/2023, 9:35. FINDINGS: Image quality: Diagnostic. Lower Neck: No enlarged lymph nodes. Thyroid: No thyroid nodules which require sonographic follow up, per consensus guidelines. Axillae: No enlarged lymph nodes. Chest Wall: Unremarkable. Bones: Unremarkable. Lungs and Pleura: Stable 7 mm left upper lobe nodule series 3, image 83. Bilateral patchy and confluent areas of apical thickening are present. Multiple bilateral pulmonary nodules are identified with the more prominent as follows: 3 mm right upper lobe nodule series 3, image 178. 4 mm right upper lobe nodule series 3, image 232. Nonspecific nodular thickening along the medial aspect of the right major fissure measuring approximately 9 mm series 3, image 255. Right lower lobe nodule measuring 6 mm series 3, image 272. There is an adjacent partially calcified nodule measuring 3 mm on series 3, image 275. 1 cm right lower lobe nodule series 3, image 289. 4 mm left lower lobe series 3, image 275. Heart: Heart size is normal. No pericardial effusion. Thoracic Vessels: The aorta and pulmonary arteries demonstrate normal size. Mediastinum and Kathie: No enlarged lymph nodes. Esophagus: No wall thickening. No hiatal hernia. Upper Abdomen: Left renal cyst as well as nonobstructing right renal calculus. Otherwise, visualized upper abdomen solid organs and bowel loops appear normal. IMPRESSION: Multiple bilateral pulmonary nodules the largest measuring 1 cm. No priors are available for comparison and there overall nonspecific. Recommend interval follow-up as below. Fleischner Society criteria for SOLID lung nodule followup. Nodule size (mm)Low-risk patientHigh-risk patient<6 (single or multiple)No routine followup.Optional CT at 12 months. 6-8 (single or multiple)CT at 6-12 months, then optional CT at 18-24 mo.CT at 6-12 months, then CT at 18-24 months. >8 (single)CT, PET-CT, or biopsy at 3 months. Same as for low-risk pts. >8 (multiple)CT at 3-6 months, then optional CT at 18-24 mo.CT at 3-6 months, then CT at 18-24 months. Recommendations do not apply to lung cancer screening, patients with immunosuppression, or patients with known primary cancer. Dictated by: Irene Wu M.D. on 11/03/2023 at 17:37 Approved by: Irene Wu M.D. on 11/03/2023 at 17:42
--- NOTE | 2023-11-03 | DI.CT.S_ITS ---
PROCEDURE: CT HEAD/BRAIN WO CON INDICATIONS: HEMATOMA TECHNIQUE: Noncontrast 4.5 mm thick angled axial sections acquired from the foramen magnum to the vertex, with coronal and sagittal reformats. For radiation dose reduction, the following was used: automated exposure control, adjustment of mA and/or kV according to patient size. COMPARISON: [facility], CT, CT HEAD/BRAIN WO CON, 10/28/2023, 9:35. FINDINGS: Image quality: Diagnostic. CSF spaces: Basal cisterns are patent. No extra-axial fluid collections. The ventricles are symmetric in size and shape. Brain: No intracranial bleeds or masses. There is cerebral volume loss for age, with resultant ventricular and sulcal prominence. There are periventricular and deep white matter chronic small vessel ischemic changes. There is intracranial internal carotid artery atherosclerosis. Skull and face: There is a right lower all forehead soft tissue hematoma seen, as on series 3, image 12. No associated calvarial fracture can be seen. Calvarium and visualized facial bones appear intact, without suspicious lesions. Sinuses: Visualized sinuses and mastoids are clear. IMPRESSION: Right lateral forehead scalp hematoma seen, which has partially regressed since the prior examination. There is no associated calvarial fracture. No acute intracranial hemorrhage is seen. No acute intracranial process is seen. Dictated by: Dylan Aden M.D. on 11/03/2023 at 15:44 Approved by: Dylan Aden M.D. on 11/03/2023 at 15:45
--- NOTE | 2023-11-03 | DI.MRI.S_ITS ---
PROCEDURE: MR SHOULDER RT WO CON INDICATIONS: PAIN RIGHT SHOULDER TECHNIQUE: Noncontrast oblique coronal T2 fast spin echo with fat saturation, oblique sagittal T1 spin echo and T2 fast spin echo with fat saturation, axial T1 spin echo and T2 fast spin echo with fat saturation through the shoulder. COMPARISON: None. FINDINGS: Image quality: Excellent. Rotator cuff: Low-grade articular and bursal surface partial thickness tear involving distal supraspinatus at its insertion on the humeral head is seen extending to musculotendinous junction. Distal infraspinatus tendinosis and low-grade articular surface partial-thickness tear at its insertion on the humeral head is noted. Distal subscapularis tendinosis is seen. No full-thickness rotator cuff tendon rupture. Sagittal images demonstrate no significant rotator cuff muscle atrophy. Bones and bursae: Marrow edema involving distal clavicle is seen without discrete fracture line. [id number] acromioclavicular joint osteoarthritic changes are seen with joint space narrowing, subchondral sclerosis and downward osteophyte formation depressing the musculotendinous junction of supraspinatus. Moderate to severe glenohumeral joint osteoarthritic changes also seen. The acromion demonstrates conventional anatomy, without an os acromiale. There is small amount of subacromial subdeltoid bursal fluid, no gross loose bodies. Capsule and soft tissues: Fraying of posterior inferior labrum at 6 to 7 o'clock position is seen concerning for subtle posterior inferior labral tear. The long head of the biceps tendon demonstrates normal location and morphology. The rotator interval appears normal, without fibrosis. The coracohumeral ligament is normal in thickness. IMPRESSION: 1. Suggestion of bony contusion involving distal clavicle with marrow edema and surrounding soft tissue edema. No definite fracture is seen. 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 Small to moderate joint effusion and subacromial subdeltoid bursal fluid, no gross loose bodies. 2. Low-grade articular and bursal surface partial thickness tear involving distal supraspinatus extending to musculotendinous junction. Low-grade articular surface partial-thickness tear involving distal infraspinatus. Distal subscapularis tendinosis. No full-thickness rotator cuff tendon rupture. No significant muscle atrophy. 3. Finding is suggestive of posterior inferior labral tear at 6 to 7 o'clock position. Dictated by: Mika Lazrao M.D. on 11/04/2023 at 9:18 Approved by: Mika Lazaro M.D. on 11/04/2023 at 9:35
== END ==
LOC: CT 15:41
PROVIDERS: Family Provider Family Medicine; PCP Family Medicine; Referring Provider Family Medicine; Visit Provider Family Medicine
DX: S00.03XA Contusion of scalp, initial encounter (principal); R40.20 Unspecified coma; R91.8 Other nonspecific abnormal finding of lung field; S46.011A Strain of muscle(s) and tendon(s) of the rotator cuff of right shoulder, initial encounter; M19.011 Primary osteoarthritis, right shoulder; M25.511 Pain in right shoulder; M25.411 Effusion, right shoulder; N28.1 Cyst of kidney, acquired; N20.0 Calculus of kidney; W19.XXXA Unspecified fall, initial encounter
CPT/HCPCS: 70450; 71250; 73221

== ENCOUNTER 2024-02-16 20:27 | Emergency (ER) | payer MEDICARE, SELFPAY ==
[2024-02-16] VITALS (8 sets, daily range): BP systolic 123–159; BP diastolic 60–92; PULSE 77–110; RESP 16–43; TEMP 36.6; O2SAT 96–99; BMI 20.5
--- NOTE | 2024-02-16 20:35 | DI.RAD.S_ITS ---
PROCEDURE: XR CHEST 1V INDICATIONS: chest pain TECHNIQUE: One view of the chest was acquired. COMPARISON: [facility], CT, CT CHEST WO CON, 11/03/2023, 15:51. [facility], CR, CHEST 1 VIEW, 06/19/2007, 10:44. FINDINGS: Surgical changes and devices: None. Lungs and pleura: Lungs are clear. No pleural effusions or pneumothorax. Mediastinum: Mediastinal contours appear normal. Heart size is normal. Bones and chest wall: No suspicious bony lesions. Prior left clavicle fracture. Overlying soft tissues appear unremarkable. Suspect artifact at the left lung base as the lucency projects outside the expected abdominal cavity. IMPRESSION: No acute cardiopulmonary abnormality is seen. Dictated by: Keron Moya M.D. on 02/16/2024 at 23:01 Approved by: Keron Moya M.D. on 02/16/2024 at 23:02
[2024-02-16] MEDS: ASPIRIN 81 MG CHEW TAB 324 MG PO (20:49)
[2024-02-16 20:53] LABS: Add Manual Diff / Slide Review NO; Basophils Absolute Auto 100 /uL (0-100); Eosinophils Absolute Auto 100 /uL (0-450); Eosinophils Percent Auto 1.3 % (2-4); Hematocrit 39.9 % (36-46); Hemoglobin 13.2 g/dL (12.0-16.0); Lymphocytes Absolute Auto 2100 /uL (1100-4500); Lymphocytes Percent Auto 35.1 % (25-40); Mean Corpuscular HGB Conc 33.1 % (30-36); Mean Corpuscular Hemoglobin 30.8 PG (26-34); Mean Corpuscular Volume 92.9 fL (80-100); Monocytes Absolute Auto 600 /uL (0-900); Monocytes Percent Auto 9.4 % (3-14); Neutrophils Absolute Auto 3200 /uL (1500-7000); Neutrophils Percent Auto 53.2 % (50-75); Platelet Count 195 X10^3/uL (150-400); Red Cell Distribution Width 14.4 % (11.6-14.8); White Blood Cell Count 6.1 X10^3/uL (4.5-11.0)
[2024-02-16 20:54] LABS: INR 0.9 (0.9-1.3)
[2024-02-16 20:57] LABS: PTT Partial Thromboplastin Tim 33 SECONDS (25.1-36.5)
[2024-02-16 21:00] LABS: Alanine Aminotransferase 20 IU/L (<35); Albumin 4.9 g/dL (3.5-5.0); Albumin Globulin Ratio 1.5 (1.0-2.8); Alkaline Phosphatase 95 U/L (38-126); Aspartate Aminotransferase 27 IU/L (14-36); BUN Creatinine Ratio 28.4 (6-22); Bilirubin Total 0.7 mg/dL (0.2-1.3); Blood Urea Nitrogen 23 mg/dL (7-17); Calcium 9.5 mg/dL (8.4-10.2); Carbon Dioxide 27 mmol/L (22-32); Chloride 107 mmol/L (98-107); Creatine Kinase 165 U/L (30-135); Estimated Glomerular Filt Rate > 60 mL/min (>60); Globulin 3.3 g/dL (1.7-4.1); Glucose 93 mg/dL (80-110); HEMOLYSIS < 15 (0-50); Lipase 90 U/L (23-300); Magnesium 2.3 mg/dL (1.6-2.3); Sodium 141 mmol/L (137-145); Total Protein 8.2 g/dL (6.3-8.2)
[2024-02-16 21:11] LABS: Troponin I < 0.012 ng/mL (0.01-0.034)
--- NOTE | 2024-02-16 22:49 | ED_ITS ---
HPI - Arrhythmia/Palpitations General Chief Complaint: Arrhythmia/Palpitations Stated Complaint: rapid heartrate, feels extra beats Time Seen by Provider: 02/16/24 22:48 Source: patient Mode of arrival: Ambulatory History of Present Illness HPI narrative: 88-year-old woman no significant medical history presents complaining of palpitations that have been intermittent for the last 4 days. She is concerned that they have been more persistent today. He has has been a problem previously, 2 months ago she had a Zio patch monitor that did not show any pathologic rhythms. She had an echocardiogram back in July that was unremarkable. She states that Dr. Alvarado, her primary care physician has done blood work and she is fairly sure that her thyroid levels have been checked and are unremarkable. She comes in today because she has been having this rapid heart rate over much of the day. When it is going fast she feels sinus pressure. There was no dyspnea, orthopnea, diaphoresis. She does not have any chest pain. There has been no recent nausea vomiting or diarrhea. On arrival in the emergency department with complaints of the palpitation she has been having all day her EKG shows a sinus tach with PACs at a rate of 103 Related Data Home Medications Medication Instructions Recorded Confirmed CYANOCOBALAMIN (VITAMIN B-12) 1,000 mcg PO Q DAY ##0 10/23/11 12/29/18 (Vitamin B-12) FLAXSEED (FLAXSEED OIL) 1 cap PO Q DAY ##0 10/23/11 12/29/18 Fish Oil (Fish Oil 500 MG Softgel) 500 mg PO Q DAY ##0 10/23/11 12/29/18 Previous Rx's Medication Instructions Recorded ondansetron 4 mg disintegrating 4 mg PO Q8H PRN nausea and 10/28/23 tablet vomiting #30 tabs promethazine 25 mg tablet 25 mg PO Q6H PRN nausea and 11/01/23 vomiting #10 tabs metoprolol tartrate 25 mg tablet 12.5 mg (1/2 x 25 mg) PO BID PRN 02/16/24 palpitations #20 tabs Allergies Allergy/AdvReac Type Severity Reaction Status Date / Time Sulfa (Sulfonamide Allergy Severe severe flu Verified 11/01/23 12:16 Antibiotics) symptoms, [SULFA (SULFONAMIDE orbital ANTIBIOTICS)] jaundice Review of Systems Review of Systems Narrative: Pertinent positive and negative findings as per HPI Patient History Social History household members: none Smoking Status: Never smoker Smoking Status: Never smoker alcohol intake frequency: 0-2 drinks per day Substance Use Type: does not use Exam Initial Vital Signs Initial Vital Signs: Vital Signs Pulse Rate 110 H 02/16/24 20:32 Blood Pressure 157/72 H 02/16/24 20:32 Pulse Oximetry 96 02/16/24 20:32 General: Healthy appearing, in no acute distress. Able to give a complete and coherent history. Well-nourished well-developed HEENT: Moist mucous membranes, normal sclera with reactive pupils, Neck: No JVD, supple Respiratory: Lungs are clear to auscultation, no wheezing no rales no rhonchi. Full and symmetrical air movement Cardiac: Regular rate and rhythm no murmurs no bruits Abdomen: Soft, nontender, good bowel tones, no flank pain Skin: Warm and dry, no rashes Neurologic: Grossly neurologically intact with no obvious asymmetries or abnormalities, no fine motor tremor Extremities: No trauma, well perfused, no lower extremity edema Psych: Cooperative, appropriate insight and affect Course Orders Ordered: ED Orders 02/16/24 20:35 XR chest 1V Stat EKG-12 Lead Stat 02/16/24 20:40 Complete Blood Count AUTO DIFF Stat Comprehensive Metabolic Panel Stat Lipase Stat Magnesium Stat PTT Partial Thromboplastin Ron Stat Prothrombin Time INR Stat Troponin & CK Cardiac Panel Stat Discontinued Medications Aspirin (Aspirin 81 Mg Chew Tab) 324 mg PO NOW ONE Stop: 02/16/24 20:36 Last Admin: 02/16/24 20:49 Dose: 324 mg Documented By: STAR Vital Signs Vital signs: Vital Signs - 8 hr 02/16/24 20:32 02/16/24 20:32 02/16/24 20:34 Temperature 97.8 F Pulse Rate 110 H 110 H Respiratory Rate 18 Blood Pressure 157/72 H 157/72 H Pulse Oximetry 96 96 Oxygen Delivery Method Room Air 02/16/24 21:00 02/16/24 21:00 02/16/24 21:30 Temperature Pulse Rate 88 Respiratory Rate 16 Blood Pressure 157/72 H 123/92 H Pulse Oximetry 98 Oxygen Delivery Method 02/16/24 21:30 02/16/24 22:00 02/16/24 22:00 Temperature Pulse Rate 80 77 Respiratory Rate 21 26 H Blood Pressure 123/67 Pulse Oximetry 98 97 Oxygen Delivery Method 02/16/24 22:30 02/16/24 22:30 Temperature Pulse Rate 80 Respiratory Rate 24 Blood Pressure 130/60 Pulse Oximetry 98 Oxygen Delivery Method MDM - Arrhythmia/Palpitations Lab Data 02/16/24 20:40 02/16/24 20:40 Labs: Lab Results 02/16/24 Range/Units 20:40 WBC 6.1 (4.5-11.0) X10^3/uL RBC 4.30 (4.0-5.2) X10^6/uL Hgb 13.2 (12.0-16.0) g/dL Hct 39.9 (36-46) % MCV 92.9 (80-100) fL MCH 30.8 (26-34) PG MCHC 33.1 (30-36) % RDW 14.4 (11.6-14.8) % Plt Count 195 (150-400) X10^3/uL Neut % (Auto) 53.2 (50-75) % Lymph % (Auto) 35.1 (25-40) % Gilliam % (Auto) 9.4 (3-14) % Eos % (Auto) 1.3 L (2-4) % Baso % (Auto) 1.0 (0-2) % Neut # (Auto) 3200 (7776-9805) /uL Lymph # (Auto) 2100 (5758-4776) /uL Gilliam # (Auto) 600 (0-900) /uL Eos # (Auto) 100 (0-450) /uL Baso # (Auto) 100 (0-100) /uL PT 10.0 (9.4-12.5) SECONDS INR 0.9 (0.9-1.3) APTT 33 (25.1-36.5) SECONDS Sodium 141 (137-145) mmol/L Potassium 4.0 (3.4-5.1) mmol/L Chloride 107 (98-107) mmol/L Carbon Dioxide 27 (22-32) mmol/L BUN 23 H (7-17) mg/dL Creatinine 0.81 (0.52-1.04) mg/dL Estimated GFR > 60 (>60) mL/min BUN/Creatinine Ratio 28.4 H (6-22) Glucose 93 (80-110) mg/dL Calcium 9.5 (8.4-10.2) mg/dL Magnesium 2.3 (1.6-2.3) mg/dL Total Bilirubin 0.7 (0.2-1.3) mg/dL AST 27 (14-36) IU/L ALT 20 (<35) IU/L Alkaline Phosphatase 95 (38-126) U/L Total Creatine Kinase 165 H (30-135) U/L Troponin I < 0.012 (0.01-0.034) ng/mL Total Protein 8.2 (6.3-8.2) g/dL Albumin 4.9 (3.5-5.0) g/dL Globulin 3.3 (1.7-4.1) g/dL Albumin/Globulin Ratio 1.5 (1.0-2.8) Lipase 90 (23-300) U/L MDM Narrative Medical decision making narrative: CC: Persistent palpitations Complicating co-morbidities: None Data collected from: patient Medical records reviewed: Most recent echocardiogram is from August 03 and shows an ejection fraction at 55-60%, no significant change from echocardiogram of 2019, mild mitral regurgitation. Differential considered: Episodes of atrial fibrillation, sepsis, pulmonary embolism, sinus tach Exam documented above, pertinent findings include: Remarkably healthy 88-year-old woman with completely unremarkable exam Lab Test results independently reviewed as above. Pertinent findings: CBC is unremarkable with no anemia Chemistries are reassuring. Creatinine kinase is slightly elevated at 165 Troponin is undetectable Lipase is within normal limits Independently reviewed EKG: Sinus tachycardia at 1:03 a.m.. This is not a two-to-one atrial flutter. No acute ischemic changes Imaging studies independently reviewed: Chest x-ray is unremarkable Discussion: 88-year-old woman with recurrent episodes of palpitations that leave her fatigued when they are gone. The sensation that she was complaining of today is documented as a sinus tachycardia at 103 Lab work is unremarkable. Recent Zio patch did not reveal significant underlying pathology. At this point I think that discharge home is safe. I am going to give her a prescription for metoprolol tartrate to use up to b.i.d. on an as-needed basis for palpitations. Clearly went over benefits risks and side effects of metoprolol. Encouraged her to follow up with Dr. Alvarado. She continues with the baby aspirin at this time which I believe is appropriate. She is safe for discharge Discharge Plan Departure Patient Disposition: Home Clinical Impression: Palpitations, Sinus tachycardia Instructions: DI for Arrhythmias Activity Restrictions/Additional Instructions: Thank you for coming in tonight Your workup today was very reassuring. There was no sign of the anemia, infection, heart attack or alternate abnormalities and blood work that would suggest significant pathology. The heart rhythm that you were in when you presented to the emergency department complaining of the palpitations was a sinus tachycardia. This is not a life- threatening rhythm I would recommend that you do continue your baby aspirin I have given you a prescription for metoprolol 12.5 mg (half of a 25 mg pill). I am going to suggest that you use 1 of these up to twice a day as needed when you are having significant amounts of palpitations. This will slow your heart rate down and can also lower your blood pressure. A prescription for this was electronically transmitted to [facility] this evening I would recommend keeping track of your blood pressures on a regular basis Please reschedule an appointment with your primary care physician but feel free to return to the emergency department if you have significant symptoms or changing findings. Prescriptions: New metoprolol tartrate 25 mg tablet 12.5 mg PO BID PRN (Reason: palpitations) Qty: 20 0RF No Action CYANOCOBALAMIN (VITAMIN B-12) (Vitamin B-12) 1,000 mcg PO Q DAY Qty: 0 FLAXSEED (FLAXSEED OIL) 1 cap PO Q DAY Qty: 0 Fish Oil (Fish Oil 500 MG Softgel) 500 mg PO Q DAY Qty: 0 ondansetron 4 mg tablet,disintegrating 4 mg PO Q8H PRN (Reason: nausea and vomiting) Qty: 30 0RF promethazine 25 mg tablet 25 mg PO Q6H PRN (Reason: nausea and vomiting) Qty: 10 0RF Referrals: Sabine Alvarado MD [Primary Care Provider] - Stand Alone Forms: Patient Portal/API
== END 2024-02-16 23:20 | disposition home or self-care (01) ==
PROVIDERS: Emergency Provider Emergency Medicine; Family Provider Family Medicine; PCP Family Medicine
DX: R00.2 Palpitations (principal); R00.0 Tachycardia, unspecified
CPT/HCPCS: 36415; 71045; 80053; 82550; 83690; 83735; 84484; 85025; 85610; 85730; 93005; 93010; 99284

== ENCOUNTER → 2024-03-05 12:45 | Outpatient (CLI) | payer MEDICARE, SELFPAY ==
--- NOTE | 2024-03-05 | DI.CT.S_ITS ---
PROCEDURE: CT CHEST WO CON INDICATIONS: Solitary pulmonary nodule TECHNIQUE: Noncontrast 5 mm thick sections acquired from the pulmonary apices to the posterior costophrenic angles. 1 mm lung window, 5 mm thick coronal and sagittal and 7 mm axial MIP reformats were then acquired. For radiation dose reduction, the following was used: automated exposure control, adjustment of mA and/or kV according to patient size. COMPARISON: [facility], CT, CT CHEST WO CON, 11/03/2023, 15:51. FINDINGS: Image quality: Diagnostic. Lower Neck: No enlarged lymph nodes. Thyroid: No thyroid nodules which require sonographic follow up, per consensus guidelines. Axillae: No enlarged lymph nodes. Chest Wall: Unremarkable. Bones: Unremarkable. Lungs and Pleura: No pneumothorax or pleural effusions. Biapical pleural-parenchymal scarring. Mild centrilobular emphysema. Stable 6 mm average diameter solid nodule at the left upper lobe (56/3). Stable 3 mm solid subpleural nodule at the anterior right upper lobe (145/3). Previously seen right middle lobe nodule has resolved. Nodular thickening on the medial right major fissure has resolved. Stable subpleural 6 mm solid nodule at the central right lung base (249/3), partially silhouetted with the diaphragm on this exam. Mild bibasilar atelectasis obscures the region of the previously seen 10 mm right lower lobe subpleural nodule and left basilar nodule. Heart: Heart size is normal. No pericardial effusion. Thoracic Vessels: The aorta and pulmonary arteries demonstrate normal size. Mediastinum and Kathie: No enlarged lymph nodes. Esophagus: No wall thickening. No hiatal hernia. Upper Abdomen: Small nonobstructing right renal calculus versus vascular calcification. Visualized upper abdomen solid organs and bowel loops appear normal. IMPRESSION: 1. Multiple bilateral pulmonary nodules do not appear significantly changed. Some of the subpleural basilar nodules are not well evaluated on the current exam, which may be related to differences in level of inspiration. Recommend repeat follow up CT at 18-24 months after the initial exam. 2. Mild centrilobular emphysema. Approved by: Antelmo Ledezma M.D. on 03/07/2024 at 3:18
== END ==
PROVIDERS: Family Provider Family Medicine; PCP Family Medicine; Referring Provider Family Medicine; Visit Provider Family Medicine
DX: R91.8 Other nonspecific abnormal finding of lung field (principal); J43.2 Centrilobular emphysema
CPT/HCPCS: 71250

== ENCOUNTER → 2024-06-01 12:54 | Outpatient (CLI) | payer MEDICARE, SELFPAY ==
--- NOTE | 2024-06-01 | DI.RAD.S_ITS ---
PROCEDURE: XR DEXA AXIAL SKELETON INDICATIONS: Other specified disorders of bone density and structure, mul COMPARISON: [facility], , XR DEXA AXIAL SKELETON, 06/05/2022, 14:47. FINDINGS: Lumbar Spine: Bone mineral density 0.837 g/cm2, T score -1.6, osteopenia. Left Hip: Bone mineral density 0.675 g/cm2, T score -2.2, osteopenia. Left Femoral Neck: Bone mineral density 0.578 g/cm2, T score -2.4, osteopenia. Right Hip: Bone mineral density 0.719 g/cm2, T score -1.8, osteopenia. Right Femoral Neck: Bone mineral density 0.598 g/cm2, T score -2.3, osteopenia. Fracture Risk Calculation (when applicable): 10-year fracture risk of a major osteoporotic fracture 13% and of a hip fracture 4.9%. (T score greater or equal to -1.0 to: NORMAL) (T score from -1.1 to -2.4: OSTEOPENIA) (T score less than or equal to -2.5: OSTEOPOROSIS) IMPRESSION: Osteopenia. Follow-up guidelines as follows: Osteoporosis: Consider a repeat DEXA and Vertebral Fracture Assessment (VFA) exam in 2 years or sooner if medically necessary, to reassess this patient's status. Osteopenia: Consider a repeat DEXA in 2-3 years to reassess this patient's status, or if there is a new clinical indication. Normal: Consider a repeat DEXA in 5 years or sooner, or if there is a new clinical indication. All treatment decisions require clinical judgment and consideration of individual patient factors, including patient preferences, comorbidities, previous drug use, risk factors not captured in the FRAX model (e.g., frailty, falls, vitamin D deficiency, increased bone turnover, interval significant decline in bone density ) and possible under- or over-estimation of fracture risk by FRAX. In addition, the NOF Guide recommends that FDA-approved medical therapies be considered in postmenopausal women and men age >= 50 years with a: * Hip or vertebral (clinical or morphometric) fracture * T-score of <=-2.5 at the spine or hip * Ten-year fracture probability by FRAX of >= 3% for hip fracture or >=20% for major osteoporotic fracture. People with diagnosed cases of osteoporosis or at high risk for fracture should have regular bone mineral density tests. For patients eligible for Medicare, routine testing is allowed once every 2 years. The testing frequency can be increased to one year for patients who have rapidly progressing disease, those who are receiving or discontinuing medical therapy to restore bone mass, or have additional risk factors. Dictated by: Harrison Baires M.D. on 06/01/2024 at 15:51 Approved by: Harrison Baires M.D. on 06/01/2024 at 15:53
== END ==
PROVIDERS: Family Provider Family Medicine; PCP Family Medicine; Referring Provider Family Medicine; Visit Provider Family Medicine
DX: M85.89 Other specified disorders of bone density and structure, multiple sites (principal)
CPT/HCPCS: 77080

== ENCOUNTER → 2024-10-07 12:53 | Outpatient (CLI) | payer MEDICARE, SELFPAY ==
--- NOTE | 2024-10-07 12:57 | DI.CT.S_ITS ---
PROCEDURE: CT ABDOMEN PELVIS W CON INDICATIONS: ABDOMINAL DISCOMFORT,NO STOOLS x 10 d TECHNIQUE: After the administration of intravenous contrast, axial sections acquired from the lung bases to the pubic symphysis. Coronal and sagittal reformats were performed. For radiation dose reduction, the following was used: automated exposure control, adjustment of mA and/or kV according to patient size. COMPARISON: None. FINDINGS: Image quality: Diagnostic Lower chest: No pleural effusions. Mild basal atelectasis. Nodular regions are seen in the middle lobe. This is new from prior imaging. The larger region measures 1.1 cm. Small amount contrast is seen in the distal esophagus which may be from slow transit versus reflux. Normal heart size where visualized. Liver: Unremarkable Gallbladder and biliary system: Unremarkable, mild biliary ductal dilation with CBD measuring about 8 mm. Pancreas: Mildly ectatic duct without discrete mass Spleen: Nonenlarged Adrenals: No discrete nodules Kidneys: Left renal cysts. No hydronephrosis. No solid renal mass or complicated lesion identified. Vessels and lymph nodes: The main portal vein appears patent. Abdominal aorta is normal diameter, with some areas of ulcerating noncalcified plaque. No pathologic lymph nodes by size criteria. Bowel and peritoneum: There is increased fecal loading. No small bowel obstruction. Dense stool ball in particular is seen in the cecum. No pathologic ascites Body wall: Postsurgical changes Pelvis: Bladder is under distended. Uterus is absent. Bones: No acute or suspicious osseous findings. There are degenerative changes. IMPRESSION: No small bowel obstruction. There is moderate to large fecal loading, including a cecal stool ball. Nodular region in the pulmonary middle lobe new from prior chest CT, possibly infectious/inflammatory. A chest CT follow-up is suggested in 3 months or sooner. Other findings above. Dictated by: Gage Mora M.D. on 10/07/2024 at 16:05 Approved by: Gage Mora M.D. on 10/07/2024 at 16:14
== END ==
PROVIDERS: Family Provider Family Medicine; PCP Family Medicine; Referring Provider Family Medicine; Visit Provider Family Medicine
DX: K82.8 Other specified diseases of gallbladder (principal); K86.89 Other specified diseases of pancreas; R91.8 Other nonspecific abnormal finding of lung field; N28.1 Cyst of kidney, acquired; R19.8 Other specified symptoms and signs involving the digestive system and abdomen; Z90.710 Acquired absence of both cervix and uterus
CPT/HCPCS: 74177; Q9967

== ENCOUNTER → 2025-01-17 11:07 | Outpatient (CLI) | payer MEDICARE, SELFPAY ==
--- NOTE | 2025-01-17 11:14 | DI.CT.S_ITS ---
PROCEDURE: CT CHEST WO CON INDICATIONS: F/U LUNG NODULE TECHNIQUE: Noncontrast 5 mm thick sections acquired from the pulmonary apices to the posterior costophrenic angles. 1 mm lung window, 5 mm thick coronal and sagittal and 7 mm axial MIP reformats were then acquired. For radiation dose reduction, the following was used: automated exposure control, adjustment of mA and/or kV according to patient size. COMPARISON: [facility], CT, CT CHEST WO CON, 11/03/2023, 15:51. [facility], CT, CT CHEST WO CON, 03/05/2024, 12:52. FINDINGS: Image quality: Diagnostic. Lower Neck: No enlarged lymph nodes. Thyroid: No thyroid nodules which require sonographic follow up, per consensus guidelines. Axillae: No enlarged lymph nodes. Chest Wall: Unremarkable. Bones: Unremarkable. Lungs and Pleura: No pneumothorax or pleural effusions. Numerous pulmonary nodules are again noted. Nodule 1: Posterior left upper lobe, unchanged, 7 mm, current image 54 of series 4. Nodule 2: Unchanged inferior pleural based pulmonary nodule, right lower lobe, current image 262, 0.8 cm. Nodule 3: Unchanged 7 mm pleural based inferior right pulmonary nodule, current image 247 of series 4. Other small pulmonary nodules are stable. Very mild changes of pulmonary interstitial fibrosis. Mild biapical centrilobular emphysema. Heart: Heart size is normal. No pericardial effusion. Thoracic Vessels: The aorta and pulmonary arteries demonstrate normal size. Mediastinum and Kathie: No enlarged lymph nodes. Esophagus: No wall thickening. No hiatal hernia. Upper Abdomen: Visualized upper abdomen solid organs and bowel loops appear normal. IMPRESSION: Multiple bilateral pulmonary nodules have been stable times greater than 2 years, consistent with benign pulmonary nodules. Mild emphysematous change and chronic interstitial fibrotic change. Dictated by: Marbin Burk M.D. on 01/17/2025 at 15:35 Approved by: Marbin Burk M.D. on 01/17/2025 at 15:42
== END ==
PROVIDERS: Family Provider Family Medicine; PCP Family Medicine; Referring Provider Family Medicine; Visit Provider Family Medicine
DX: J43.2 Centrilobular emphysema (principal); R91.8 Other nonspecific abnormal finding of lung field
CPT/HCPCS: 71250

== ENCOUNTER → 2025-02-14 13:53 | Outpatient (CLI) | payer MEDICARE, SELFPAY ==
--- NOTE | 2025-02-14 13:55 | DI.RAD.S_ITS ---
PROCEDURE: XR HIP RT 2V INDICATIONS: Right Hip Pain TECHNIQUE: AP view of the pelvis and lateral view of the right hip. COMPARISON: None. FINDINGS: Bones: No fractures or dislocations. No suspicious bony lesions. The visualized pelvic ring appears intact. Moderate degenerative changes in the hips bilaterally. Degenerative changes are seen in the included spine. Soft tissues: No suspicious soft tissue calcifications. IMPRESSION: Moderate bilateral hip osteoarthrosis. No acute osseous abnormality. Approved by: Antelmo Ledezma M.D. on 02/14/2025 at 16:24
--- NOTE | 2025-02-14 13:55 | DI.RAD.S_ITS ---
PROCEDURE: XR KNEE 2V WB RIGHT INDICATIONS: Right Knee Pain TECHNIQUE: Four views of the right knee and three views of the left knee were acquired. COMPARISON: None. FINDINGS: Bones: No fractures or dislocations. No suspicious bony lesions. Moderate to severe joint space narrowing at the left medial femorotibial compartment subchondral sclerosis and subchondral cystic changes. Moderate joint space narrowing at the right medial femorotibial compartment. Mild joint space narrowing at the lateral femorotibial compartments and patellofemoral compartments bilaterally. Soft tissues: No significant right knee effusion. No suspicious soft tissue calcifications. IMPRESSION: Bilateral tricompartmental osteoarthrosis, moderate to severe at the left medial femorotibial compartment and moderate at the right medial femorotibial compartment. Approved by: Antelmo Ledezma M.D. on 02/14/2025 at 16:27
== END ==
PROVIDERS: Family Provider Family Medicine; PCP Family Medicine; Referring Provider Orthopaedic Surgery Adult Reconstructive Orthopaedic Surgery; Visit Provider Orthopaedic Surgery Adult Reconstructive Orthopaedic Surgery
DX: M16.0 Bilateral primary osteoarthritis of hip (principal); M17.0 Bilateral primary osteoarthritis of knee; M25.551 Pain in right hip; M25.561 Pain in right knee
CPT/HCPCS: 73502; 73564